=== PATIENT | male | born 1945 | race Caucasian/White ===

== ENCOUNTER 2024-07-31 18:44 | Inpatient (IN) ==
[2024-07-31] MEDS: IPRATROPIUM/ALBUTEROL 3 ML AMPUL.NEB NEB ONE (19:02)
[2024-07-31 19:04] LABS: Basophils # (Auto) 0 K/mcL (0.00-0.30); Basophils % (Auto) 0 % (0.0-2.0); Eosinophils # (Auto) 0.01 K/mcL (0.00-0.70); Eosinophils % (Auto) 0.1 % (0.0-7.0); Hematocrit 47.1 % (40.1-51.0); Hemoglobin 15.4 g/dL (13.7-17.5); Lymphocytes % (Auto) 2.9 % (15.5-49.0); Mean Cell Volume 97.7 fL (80.0-100.0); Mean Corpuscular HGB Conc 32.7 g/dL (31.0-36.0); Mean Platelet Volume 9.2 fL (8.8-12.5); Monocytes # (Auto) 0.79 K/mcL (0.10-0.90); Monocytes % (Auto) 7.6 % (1.0-12.0); Neutrophils % (Auto) 88.9 % (38.0-78.0); Platelet Count 169 K/mcL (140-440); RBC 4.82 M/mcL (4.63-6.08); Red Cell Distribution Width 12.1 % (11.5-14.5); WBC 10.4 K/mcL (4.5-11.0)
[2024-07-31] MEDS: ALBUTEROL SULFATE 2.5 MG/3 ML NEBULIZER NEB ONE (19:20)
[2024-07-31 19:29] LABS: ALT/SGPT 13 U/L (<40); AST/SGOT 20 U/L (<40); Albumin 3.8 gm/dL (3.2-5.2); Albumin/Globulin Ratio 1.3 (1.0-2.3); Alkaline Phosphatase 95 U/L (39-117); Bilirubin,Total 0.3 mg/dL (0.1-1.0); Blood Urea Nitrogen 19 mg/dL (8-23); Calcium 10.1 mg/dL (8.6-10.4); Carbon Dioxide 25 mmol/L (22-30); Chloride 101 mmol/L (96-108); Globulin 2.9 gm/dL (2.2-3.7); Glomerular Filtration Rate 82; Glucose 183 mg/dL (70-105); Potassium 4.7 mmol/L (3.3-5.1); Sodium 140 mmol/L (133-145)
[2024-07-31] MEDS: cefTRIAXone 1 GM VIAL IV ONE (19:40)
[2024-07-31] MEDS: OSELTAMIVIR PHOSPHATE 75 MG CAPSULE PO ONE (19:47)
[2024-07-31] MEDS ORDERED: METOCLOPRAMIDE 10 MG/2 ML VIAL IV PRN (21:32)
[2024-07-31] MEDS ORDERED: DEXTROSE 31 GM ORAL.SUSP PO PRN (21:32)
[2024-07-31] MEDS ORDERED: POTASSIUM CHLORIDE 40 MEQ in DEXTROSE 5% IN WATER 500 ML IV PRN (21:32)
[2024-07-31] MEDS ORDERED: POTASSIUM CHLORIDE 20 MEQ TABLET PO PRN ×2 (21:32)
[2024-07-31] MEDS ORDERED: POLYETHYLENE GLYCOL 3350 17 GM PACKET PO PRN (21:32)
[2024-07-31] MEDS ORDERED: SENNOSIDES 1 TABLET PO PRN (21:32)
[2024-07-31] MEDS ORDERED: LABETALOL HCL 20 MG/4 ML VIAL IV PRN (21:32)
[2024-07-31] MEDS ORDERED: MAGNESIUM SULFATE 2 GM/50 ML BAG IV PRN (21:32)
[2024-07-31] MEDS ORDERED: DEXTROSE 50% 50 ML VIAL IV PRN (21:32)
[2024-07-31] MEDS ORDERED: DOXYLAMINE SUCCINATE 25 MG PO PRN (21:44)
[2024-07-31] MEDS: methylPREDNISolone SOD SUCC 40 MG/ML VIAL IV SCH (22:03)
[2024-07-31] MEDS: DOCUSATE SODIUM 100 MG CAPSULE PO SCH (22:03)
[2024-07-31] MEDS: FAMOTIDINE 20 MG TABLET PO SCH (22:03)
[2024-07-31] MEDS: AZITHROMYCIN 500 MG in DEXTROSE 5% IN WATER 250 ML IV SCH (22:03)
[2024-07-31] MEDS: BUDESONIDE 0.5 MG/2 ML AMPUL.NEB NEB SCH (22:08)
[2024-07-31] MEDS: INSULIN LISPRO 1 UNIT/0.01 ML UNIT SQ SCH (22:19)
[2024-07-31] MEDS: MELATONIN 3 MG TABLET PO SCH (22:19)
[2024-07-31] MEDS: APIXABAN 2.5 MG TABLET PO SCH (22:19)
[2024-07-31] MEDS: METOPROLOL TARTRATE 5 MG/5 ML VIAL IV PRN (22:31)
[2024-07-31] MEDS: ACETAMINOPHEN 325 MG TABLET PO PRN (23:33)
[2024-07-31] MEDS: ONDANSETRON 4 MG/2 ML VIAL IV PRN (23:33)
[2024-08-01] MEDS: IPRATROPIUM/ALBUTEROL 3 ML AMPUL.NEB NEB SCH (00:51)
[2024-08-01 06:20] LABS: Basophils # (Auto) 0 K/mcL (0.00-0.30); Basophils % (Auto) 0 % (0.0-2.0); Eosinophils # (Auto) 0 K/mcL (0.00-0.70); Eosinophils % (Auto) 0 % (0.0-7.0); Hematocrit 45.2 % (40.1-51.0); Hemoglobin 14.4 g/dL (13.7-17.5); Lymphocytes # (Auto) 0.28 K/mcL (1.50-4.80); Lymphocytes % (Auto) 3.3 % (15.5-49.0); Mean Cell Volume 101.1 fL (80.0-100.0); Mean Corpuscular HGB Conc 31.9 g/dL (31.0-36.0); Mean Platelet Volume 9.4 fL (8.8-12.5); Monocytes # (Auto) 0.34 K/mcL (0.10-0.90); Monocytes % (Auto) 3.9 % (1.0-12.0); Neutrophils % (Auto) 92.5 % (38.0-78.0); Platelet Count 148 K/mcL (140-440); RBC 4.47 M/mcL (4.63-6.08); Red Cell Distribution Width 12.2 % (11.5-14.5); WBC 8.6 K/mcL (4.5-11.0)
[2024-08-01 06:24] LABS: ALT/SGPT 13 U/L (<40); AST/SGOT 21 U/L (<40); Albumin 3.7 gm/dL (3.2-5.2); Albumin/Globulin Ratio 1.5 (1.0-2.3); Alkaline Phosphatase 79 U/L (39-117); Bilirubin,Direct < 0.2 mg/dL (0-0.3); Bilirubin,Total < 0.2 mg/dL (0.1-1.0); Blood Urea Nitrogen 22 mg/dL (8-23); Calcium 9.7 mg/dL (8.6-10.4); Carbon Dioxide 27 mmol/L (22-30); Chloride 101 mmol/L (96-108); Globulin 2.5 gm/dL (2.2-3.7); Glomerular Filtration Rate 65; Glucose 226 mg/dL (70-105); Lactate Dehydrogenase 152 U/L (135-225); Phosphorous 3.2 mg/dL (2.5-4.5); Potassium 5.3 mmol/L (3.3-5.1); Sodium 139 mmol/L (133-145); Triglycerides 68 mg/dL (<150); Uric Acid 5.4 mg/dL (2.5-8.0)
[2024-08-01] MEDS: CILOSTAZOL 100 MG TABLET PO SCH (07:43)
[2024-08-01] MEDS: OMEPRAZOLE 20 MG CAPSULE PO SCH (07:43)
[2024-08-01] MEDS: OSELTAMIVIR PHOSPHATE 75 MG CAPSULE PO SCH (08:58)
[2024-08-01] MEDS: ATORVASTATIN 40 MG TABLET PO SCH (08:58)
[2024-08-01] MEDS: busPIRone 5 MG TABLET PO SCH (08:58)
[2024-08-01] MEDS: CARVEDILOL 3.125 MG TABLET PO SCH (08:58)
[2024-08-01] MEDS: AZITHROMYCIN 250 MG TABLET PO SCH (08:58)
[2024-08-01] MEDS ORDERED: OSELTAMIVIR PHOSPHATE 30 MG CAPSULE PO SCH (09:00)
[2024-08-01] MEDS: guaiFENesin 600 MG TAB.SR.12H PO SCH (12:17)
[2024-08-01] MEDS: methylPREDNISolone SOD SUCC 125 MG/2 ML VIAL IV SCH (15:03)
[2024-08-01] MEDS: methylPREDNISolone SOD SUCC 40 MG/ML VIAL IV SCH (17:24)
[2024-08-01] MEDS: INSULIN GLARGINE, HUMAN 1 UNIT/0.01 ML SQ SCH (20:41)
[2024-08-02 06:56] LABS: Blood Urea Nitrogen 25 mg/dL (8-23); Calcium 9.6 mg/dL (8.6-10.4); Carbon Dioxide 31 mmol/L (22-30); Chloride 102 mmol/L (96-108); Glomerular Filtration Rate 72; Glucose 228 mg/dL (70-105); Potassium 4.9 mmol/L (3.3-5.1); Sodium 141 mmol/L (133-145)
[2024-08-02] MEDS: IPRATROPIUM/ALBUTEROL 3 ML AMPUL.NEB NEB PRN (08:22)
[2024-08-02] MEDS ORDERED: guaiFENesin/CODEINE 10 ML UDC PO PRN (10:18)
[2024-08-02] MEDS: methylPREDNISolone SOD SUCC 40 MG/ML VIAL IV SCH (13:36)
[2024-08-03 13:23] VITALS: TEMP 97.7; O2SAT 93
[2024-08-03] MEDS ORDERED: predniSONE 20 MG TABLET PO SCH (17:30)
== END 2024-08-03 13:20 | disposition home or self-care (01) | DRG 192 ==
LOC: ED 18:44 → ICU 21:30 → MEDSUR 08-02 17:26
PROVIDERS: ADMIT Internal Medicine; ATTEND Internal Medicine